=== PATIENT | female | born 1965 | race African-American/Black ===

== ENCOUNTER 2016-07-10 01:04 | Emergency (ER) | payer MEDICAID, OTHER ==
[~2016-07-10] VITALS: Ht 167.6 cm; Wt 88.0 kg
[2016-07-10] MEDS ORDERED: SODIUM CHLORIDE 0.9% 1,000 ML IV ONE ×2 (01:36→03:30)
[2016-07-10] MEDS ORDERED: LORAZEPAM 2MG/ML CPJ IV ONE (01:45)
[2016-07-10 02:07] LABS: BASOPHILS % 1.4 % (0.0-2.0); EOSINOPHILS % 1.1 % (0.0-5.0); HEMATOCRIT. 36.5 % (36.0-48.0); LYMPHOCYTES % 25.8 % (20.0-50.0); MEAN CORPUSCULAR HEMOGLOBIN 28.9 pg (28.0-32.0); MEAN CORPUSCULAR VOLUME 87.8 fL (81.0-99.0); MEAN PLATELET VOLUME 8.2 fl (7.4-10.4); MONOCYTES % 10.4 % (2.0-8.0); NEUTROPHILS % 61.3 % (40.0-76.0); PLATELET 240 x1000/uL (130-400); RED BLOOD CELL COUNT 4.15 mill/uL (4.2-5.4); RED CELL DISTRIBUTION WIDTH 14.3 % (11.6-14.6)
[2016-07-10 02:14] LABS: PARTIAL THROMBOPLASTIN TIME 25.4 sec (24.0-34.0); PROTHROMBIN TIME 10.7 sec
[2016-07-10 02:22] LABS: CARBON DIOXIDE 26 mEq/L (21-32); CHLORIDE 100 mEq/L (98-107); TROPONIN I < 0.02 ng/mL (0.00-0.04)
[2016-07-10 04:24] LABS: CLARITY URINE CLEAR (CLEAR); COLOR URINE YELLOW (YELLOW); GLUCOSE URINE NEGATIVE (NEGATIVE); KETONES URINE NEGATIVE (NEGATIVE); LEUKOCYTE ESTERASE URINE NEGATIVE (NEGATIVE); NITRITE URINE NEGATIVE (NEGATIVE); OCCULT BLOOD URINE NEGATIVE (NEGATIVE); PROTEIN URINE NEGATIVE (NEGATIVE); SPECIFIC GRAVITY URINE 1.003 (1.005-1.030); UROBILINOGEN URINE 0.2 E.U./dL (0.2-1.0)
[2016-07-10 05:03] LABS: *AMPHETAMINES SCREEN URINE NEGATIVE (NEGATIVE); *BARBITURATES SCREEN URINE NEGATIVE (NEGATIVE); *BENZODIAZEPINES SCREEN URINE NEGATIVE (NEGATIVE); *COCAINE SCREEN URINE NEGATIVE (NEGATIVE); METHADONE URINE SCREEN NEGATIVE (NEGATIVE); OPIATES URINE SCREEN PRESUMTIVE POSITIVE (NEGATIVE); PHENCYCLIDINE URINE SCREEN PRESUMTIVE POSITIVE (NEGATIVE)
[2016-07-10 05:04] LABS: CANNABINOID URINE SCREEN NEGATIVE (NEGATIVE)
[2016-07-10 10:28] VITALS: BP 144/98
== END 2016-07-10 10:42 | disposition home or self-care (01) ==
LOC: ER 01:04
DX: R07.89 Other chest pain (principal); R06.02 Shortness of breath; R00.0 Tachycardia, unspecified; R03.0 Elevated blood-pressure reading, without diagnosis of hypertension; F17.210 Nicotine dependence, cigarettes, uncomplicated; F16.10 Hallucinogen abuse, uncomplicated; Z98.890 Other specified postprocedural states
CPT/HCPCS: 36415; 71010; 80053; 80305; 81003; 84484; 85025; 85610; 85730; 93005; 96361; 96374; 99285; J2060; J7030

== ENCOUNTER 2016-07-11 12:54 | Emergency (ER) | payer MEDICAID ==
[2016-07-11 15:46] LABS: HEMATOCRIT. 39.1 % (36.0-48.0); HEMOGLOBIN. 12.7 g/dL (12.0-16.0); MEAN CORPUSCULAR HEMOGLOBIN 28.8 pg (28.0-32.0); MEAN CORPUSCULAR VOLUME 88.6 fL (81.0-99.0); PLATELET 253 x1000/uL (130-400); RED BLOOD CELL COUNT 4.41 mill/uL (4.2-5.4); RED CELL DISTRIBUTION WIDTH 14.2 % (11.6-14.6)
[2016-07-11 16:01] LABS: CARBON DIOXIDE 31 mEq/L (21-32); CHLORIDE 107 mEq/L (98-107)
[2016-07-11 16:46] LABS: ATYPICAL LYMPHOCYTES 3; PLATELET ESTIMATE NORMAL
== END 2016-07-11 17:21 | disposition home or self-care (01) ==
LOC: ER 14:58
DX: R09.89 Other specified symptoms and signs involving the circulatory and respiratory systems (principal); F12.10 Cannabis abuse, uncomplicated
CPT/HCPCS: 36415; 71010; 80048; 83880; 85007; 85027; 99285

== ENCOUNTER 2017-06-30 23:00 | Emergency (ER) | payer MEDICAID ==
[~2017-06-30] VITALS: Ht 172.7 cm; Wt 100.0 kg
[~2017-06-30 23:00] MED LIST: GABA-529 PO; LEVO100T9 PO
[2017-06-30 23:11] VITALS: BP 183/97
== END 2017-07-01 | disposition left against medical advice (07) ==
LOC: ER 23:00
DX: Z53.21 Procedure and treatment not carried out due to patient leaving prior to being seen by health care provider (principal)

== ENCOUNTER 2018-04-10 10:45 | Emergency (ER) | payer MEDICAID ==
[~2018-04-10] VITALS: Ht 167.6 cm; Wt 80.0 kg
[2018-04-10] MEDS ORDERED: KETOROLAC 30MG/ML VIAL IV STA (11:04)
[2018-04-10] MEDS ORDERED: MORPHINE SULFATE 4 MG/ML CPJ (NOT FOR IM USE) IV STA (12:33)
[2018-04-10 13:07] LABS: BASOPHILS % 1.2 % (0.0-2.0); EOSINOPHILS % 0.9 % (0.0-5.0); HEMATOCRIT. 41.2 % (36.0-48.0); HEMOGLOBIN. 13.5 g/dL (12.0-16.0); LYMPHOCYTES % 21.5 % (20.0-50.0); MEAN CORPUSCULAR HEMOGLOBIN 28.8 pg (28.0-32.0); MEAN CORPUSCULAR VOLUME 88.1 fL (81.0-99.0); MEAN PLATELET VOLUME 8.1 fl (7.4-10.4); MONOCYTES % 5.3 % (2.0-8.0); NEUTROPHILS % 71.1 % (40.0-76.0); PLATELET 358 x1000/uL (130-400); RED BLOOD CELL COUNT 4.67 mill/uL (4.2-5.4); RED CELL DISTRIBUTION WIDTH 16.3 % (11.6-14.6)
[2018-04-10 13:13] LABS: CHLORIDE 105 mEq/L (98-107)
[2018-04-10 15:25] VITALS: BP 150/87
== END 2018-04-10 15:48 | disposition short-term general hospital (02) ==
LOC: ER 10:51 → CANBEDREQ 15:25 → ER 15:48
DX: G89.29 Other chronic pain (principal); M54.89 Other dorsalgia; E03.8 Other specified hypothyroidism; F17.210 Nicotine dependence, cigarettes, uncomplicated; Z96.659 Presence of unspecified artificial knee joint
CPT/HCPCS: 36415; 70450; 72100; 72125; 80053; 85025; 96374; 96375; 99285; J1885; J2270

== ENCOUNTER 2019-10-10 00:26 | Emergency (ER) | payer OTHER, MEDICAID ==
[~2019-10-10] VITALS: Ht 170.2 cm; Wt 95.0 kg
[2019-10-10 03:00] VITALS: BP 188/118
== END 2019-10-10 04:06 | disposition home or self-care (01) ==
LOC: ER 00:26
DX: M25.512 Pain in left shoulder (principal); L01.00 Impetigo, unspecified; E03.9 Hypothyroidism, unspecified; Z96.659 Presence of unspecified artificial knee joint; Y04.0XXA Assault by unarmed brawl or fight, initial encounter; Y93.89 Activity, other specified; Y92.018 Other place in single-family (private) house as the place of occurrence of the external cause
CPT/HCPCS: 73030; 99283

== ENCOUNTER 2019-10-19 03:59 | Emergency (ER) | payer OTHER, MEDICAID ==
[~2019-10-19] VITALS: Ht 170.2 cm; Wt 94.0 kg
[2019-10-19] MEDS ORDERED: DIPHENHYDRAMINE 50MG/ML VIAL IV ONE (05:15)
[2019-10-19] MEDS ORDERED: METHYLPREDNISOLONE SOD SUCC 125 MG/2 ML VIAL IV ONE (05:15)
[2019-10-19 05:26] LABS: HEMATOCRIT. 33.5 % (36.0-48.0); MEAN CORPUSCULAR VOLUME 94.4 fL (81.0-99.0); MEAN PLATELET VOLUME 7.7 fl (7.4-10.4); PLATELET 295 x1000/uL (130-400); RED BLOOD CELL COUNT 3.55 mill/uL (4.2-5.4); RED CELL DISTRIBUTION WIDTH 17.6 % (11.6-14.6)
[2019-10-19 05:33] LABS: CHLORIDE 111 mEq/L (98-107)
[2019-10-19 06:26] VITALS: BP 177/100
[2019-10-19 06:46] LABS: PLATELET ESTIMATE NORMAL
== END 2019-10-19 06:39 | disposition home or self-care (01) ==
LOC: ER 04:22
DX: T78.40XA Allergy, unspecified, initial encounter (principal); X58.XXXA Exposure to other specified factors, initial encounter; R03.0 Elevated blood-pressure reading, without diagnosis of hypertension; F17.210 Nicotine dependence, cigarettes, uncomplicated; Z71.6 Tobacco abuse counseling
CPT/HCPCS: 36415; 80053; 85025; 96374; 96375; 99284; 99406; J1200; J2930

== ENCOUNTER 2019-10-22 03:02 | Emergency (ER) | payer OTHER, MEDICAID ==
[~2019-10-22] VITALS: Ht 170.2 cm; Wt 101.0 kg
[2019-10-22] MEDS ORDERED: LORAZEPAM 0.5MG TABLET PO ONE (03:30)
[2019-10-22 04:10] VITALS: BP 165/94
== END 2019-10-22 04:18 | disposition home or self-care (01) ==
LOC: ER 03:02
DX: L29.9 Pruritus, unspecified (principal); Z96.659 Presence of unspecified artificial knee joint
CPT/HCPCS: 99283

== ENCOUNTER 2021-01-12 18:21 | Emergency (ER) | payer OTHER, MEDICAID ==
[~2021-01-12] VITALS: Ht 170.2 cm; Wt 87.0 kg
[2021-01-12 18:29] VITALS: BP 155/98
[2021-01-12] MEDS ORDERED: ACETAMINOPHEN 325MG TABLET PO STA (18:40)
[2021-01-12 19:39] LABS: BASOPHILS % 1.8 % (0.0-2.0); EOSINOPHILS % 5.8 % (0.0-5.0); HEMATOCRIT. 34.4 % (36.0-48.0); HEMOGLOBIN. 11.1 g/dL (12.0-16.0); LYMPHOCYTES % 30.9 % (20.0-50.0); MEAN CORPUSCULAR HEMOGLOBIN 29.8 pg (28.0-32.0); MEAN CORPUSCULAR VOLUME 92.2 fL (81.0-99.0); MEAN PLATELET VOLUME 7.6 fl (7.4-10.4); NEUTROPHILS % 49.5 % (40.0-76.0); PLATELET 423 x1000/uL (130-400); RED BLOOD CELL COUNT 3.73 mill/uL (4.2-5.4); RED CELL DISTRIBUTION WIDTH 14.7 % (11.6-14.6)
[2021-01-12 19:46] LABS: CHLORIDE 110 mEq/L (98-107)
[2021-01-12 19:50] LABS: ETHANOL BLOOD 19 mg/dL
== END 2021-01-12 22:49 | disposition left against medical advice (07) ==
LOC: ER 18:21
DX: M54.50 Low back pain, unspecified (principal); F10.10 Alcohol abuse, uncomplicated; Z96.659 Presence of unspecified artificial knee joint; Y90.0 Blood alcohol level of less than 20 mg/100 ml
CPT/HCPCS: 36415; 80053; 80320; 85025; 99283; G0480

== ENCOUNTER 2021-05-22 20:12 | Emergency (ER) | payer OTHER, MEDICAID ==
[~2021-05-22] VITALS: Ht 165.1 cm; Wt 83.0 kg
[2021-05-22] MEDS ORDERED: HYDROCODONE/ACETAMINOPHEN 5/325MG TABLET PO ONE (21:30)
[2021-05-22 21:45] VITALS: BP 188/86
[2021-05-22] MEDS ORDERED: HYDR-4001 MT (22:58)
== END 2021-05-22 23:05 | disposition home or self-care (01) ==
LOC: ER 20:12
DX: M25.512 Pain in left shoulder (principal); M19.90 Unspecified osteoarthritis, unspecified site; F10.21 Alcohol dependence, in remission
CPT/HCPCS: 71045; 73030; 99284

== ENCOUNTER 2021-06-27 19:38 | Emergency (ER) | payer OTHER, MEDICAID ==
[~2021-06-27] VITALS: Ht 162.6 cm; Wt 88.2 kg
[~2021-06-27 19:38] MED LIST changes: +HYDR-4001 MT
[2021-06-27] MEDS ORDERED: LORAZEPAM 1MG TABLET PO ONE (20:00)
[2021-06-27 20:31] LABS: HEMATOCRIT. 31.4 % (36.0-48.0); HEMOGLOBIN. 10.3 g/dL (12.0-16.0); MEAN CORPUSCULAR HEMOGLOBIN 30.5 pg (28.0-32.0); MEAN CORPUSCULAR VOLUME 92.8 fL (81.0-99.0); MEAN PLATELET VOLUME 7.9 fl (7.4-10.4); PLATELET 384 x1000/uL (130-400); RED BLOOD CELL COUNT 3.38 mill/uL (4.2-5.4); RED CELL DISTRIBUTION WIDTH 15.5 % (11.6-14.6)
[2021-06-27 20:41] LABS: CHLORIDE 103 mEq/L (98-107)
[2021-06-27 20:45] LABS: HCG SCREEN NEGATIVE
[2021-06-27] MEDS ORDERED: SODIUM CHLORIDE 0.9% 500 ML IV ONE (20:45)
[2021-06-27] MEDS ORDERED: MORPHINE SULFATE 4 MG/ML CPJ (NOT FOR IM USE) IV ONE (20:45)
[2021-06-27 20:48] LABS: ETHANOL BLOOD 45 mg/dL
[2021-06-27 21:37] VITALS: BP 216/110
[2021-06-27 21:39] LABS: PLATELET ESTIMATE NORMAL
[2021-06-27 22:28] LABS: CLARITY URINE CLEAR (CLEAR); COLOR URINE YELLOW (YELLOW); KETONES URINE NEGATIVE (NEGATIVE); LEUKOCYTE ESTERASE URINE NEGATIVE (NEGATIVE); NITRITE URINE NEGATIVE (NEGATIVE); OCCULT BLOOD URINE NEGATIVE (NEGATIVE); PROTEIN URINE NEGATIVE (NEGATIVE); UROBILINOGEN URINE 0.2 E.U./dL (0.2-1.0)
[2021-06-27 22:42] LABS: *AMPHETAMINES SCREEN URINE NEGATIVE (NEGATIVE); *BARBITURATES SCREEN URINE NEGATIVE (NEGATIVE); *BENZODIAZEPINES SCREEN URINE NEGATIVE (NEGATIVE); *COCAINE SCREEN URINE NEGATIVE (NEGATIVE); CANNABINOID URINE SCREEN NEGATIVE (NEGATIVE); METHADONE URINE SCREEN NEGATIVE (NEGATIVE); OPIATES URINE SCREEN PRESUMTIVE POSITIVE (NEGATIVE); PHENCYCLIDINE URINE SCREEN PRESUMTIVE POSITIVE (NEGATIVE)
[2021-06-27] MEDS ORDERED: HYDROCHLOROTHIAZIDE 25MG TABLET PO ONE (22:45)
== END 2021-06-28 00:18 | disposition left against medical advice (07) ==
LOC: ER 19:38
DX: T40.991A Poisoning by other psychodysleptics [hallucinogens], accidental (unintentional), initial encounter (principal); T40.601A Poisoning by unspecified narcotics, accidental (unintentional), initial encounter; I10 Essential (primary) hypertension; F15.10 Other stimulant abuse, uncomplicated; Z96.612 Presence of left artificial shoulder joint; Z96.659 Presence of unspecified artificial knee joint; Y92.89 Other specified places as the place of occurrence of the external cause
CPT/HCPCS: 36415; 80053; 80305; 80307; 80320; 80329; 81003; 83690; 84703; 85025; 96361; 96374; 99283; J2270; J7040; G0480

== ENCOUNTER 2021-08-14 16:56 | Emergency (ER) | payer OTHER, MEDICAID ==
[~2021-08-14] VITALS: Ht 165.1 cm; Wt 80.0 kg
[2021-08-14 17:13] VITALS: BP 169/125
== END 2021-08-14 19:26 | disposition left against medical advice (07) ==
LOC: ER 16:56
DX: M25.512 Pain in left shoulder (principal); I10 Essential (primary) hypertension; E03.9 Hypothyroidism, unspecified; Z96.659 Presence of unspecified artificial knee joint; Z98.890 Other specified postprocedural states; Y04.0XXA Assault by unarmed brawl or fight, initial encounter; Y93.89 Activity, other specified; Y92.018 Other place in single-family (private) house as the place of occurrence of the external cause
CPT/HCPCS: 73200; 99284

== ENCOUNTER 2021-08-30 17:44 | Emergency (ER) | payer OTHER, MEDICAID ==
[~2021-08-30] VITALS: Ht 170.2 cm; Wt 80.0 kg
[2021-08-30 17:56] VITALS: BP 183/112
== END 2021-08-30 19:24 | disposition left against medical advice (07) ==
LOC: ER 17:44
DX: F10.129 Alcohol abuse with intoxication, unspecified (principal); G93.49 Other encephalopathy; I10 Essential (primary) hypertension; Y90.9 Presence of alcohol in blood, level not specified; Z96.659 Presence of unspecified artificial knee joint; V43.52XA Car driver injured in collision with other type car in traffic accident, initial encounter; Y93.89 Activity, other specified; Y92.488 Other paved roadways as the place of occurrence of the external cause
CPT/HCPCS: 99283